=== PATIENT | male | born 1945 | race Caucasian/White ===

== ENCOUNTER 2019-09-29 10:21 | Outpatient (CLI) | payer MEDICARE, OTHER ==
--- NOTE | 2019-09-29 11:30 | CT ---
CT PULMONARY LUNG SCAN PERFORMED WITHOUT CONTRAST ENHANCEMENT: Date: 09/29/2019 HISTORY: 42-year 2 pack/day history of smoking. Quit smoking in 2007. FINDINGS: There is some pleural based nodular scarring in the lung apices. A 4.0 mm left upper lobe pulmonary nodule is seen, axial image 39. Postop sternotomy changes are noted. No significant mediastinal adenopathy appreciated. Visualized li jessica parenchyma is unremarkable. Calcific density is seen in the gallbladder, probably a small stone. IMPRESSION: 1. Lung-RADS Category 2 - Benign appearance or behavior. Annual follow-up is recommended. 2. Incidental note is made of a possible small gallstone. POS: [facility]
== END 2019-09-29 10:22 | disposition home or self-care (01) ==
LOC: CT 10:21
PROVIDERS: ATTEND Family Medicine Sports Medicine
DX: Z12.2 Encounter for screening for malignant neoplasm of respiratory organs (principal); Z87.891 Personal history of nicotine dependence
CPT/HCPCS: G0297

== ENCOUNTER 2021-01-16 11:28 | Outpatient (CLI) | payer MEDICARE, OTHER | END 2021-01-16 11:29 | disposition home or self-care (01) | LOC: BICCT 11:28 | PROVIDERS: ATTEND Family Medicine Sports Medicine | DX: Z12.2 Encounter for screening for malignant neoplasm of respiratory organs (principal); Z87.891 Personal history of nicotine dependence | CPT/HCPCS: 71271 ==